=== PATIENT | female | born 1950 | race Asian ===

== ENCOUNTER 2018-03-26 12:20 | Emergency (ER) | payer OTHER ==
[~2018-03-26] VITALS: Ht 147.3 cm; Wt 42.2 kg
[2018-03-26 12:27] VITALS: Ht 147.3 cm; Wt 42.2 kg
[2018-03-26 15:39] VITALS: BP 160/80
== END 2018-03-26 15:39 | disposition home or self-care (01) ==
LOC: ED 12:20
DX: S61.432A Puncture wound without foreign body of left hand, initial encounter (principal); S61.431A Puncture wound without foreign body of right hand, initial encounter; S31.823A Puncture wound without foreign body of left buttock, initial encounter; S31.813A Puncture wound without foreign body of right buttock, initial encounter; W54.0XXA Bitten by dog, initial encounter; Y93.K1 Activity, walking an animal; Y92.89 Other specified places as the place of occurrence of the external cause; Y99.8 Other external cause status
CPT/HCPCS: 90715